=== PATIENT | female | born 1970 | race African-American/Black ===

== ENCOUNTER 2021-09-15 15:30 | Inpatient (IN) | payer OTHER ==
[2021-09-15 17:31] VITALS: BMI 24.5
[2021-09-15] MEDS ORDERED: NICOTINE 10 MG CARTRIDGE (INHALER) IH PRN (22:46)
[2021-09-15] MEDS ORDERED: P-EPHED 60MG/TRIPROLIDI 2.5MG TABLET PO PRN (22:46)
[2021-09-15] MEDS ORDERED: MAGNESIUM HYDROX 2400MG/30ML ORAL SUSPENSION 30 ML CUP PO PRN (22:46)
[2021-09-15] MEDS ORDERED: LOPERAMIDE HCL 2 MG CAPSULE PO PRN (22:46)
[2021-09-15] MEDS ORDERED: ACETAMINOPHEN 325 MG TABLET (FP) PO PRN (22:46)
[2021-09-15] MEDS ORDERED: MAGNESIUM CITRATE 300 ML BOTTLE PO PRN (22:46)
[2021-09-15] MEDS ORDERED: guaiFENesin 200 MG/10 ML 10 ML UNIT-DOSE CUPS PO PRN (22:46)
[2021-09-15] MEDS ORDERED: MAG HYDROX/AL HYDROX/SIMETH 30 ML UNIT-DOSE CUP PO PRN (22:46)
[2021-09-16] MEDS ORDERED: TUBERCULIN PPD 5 TU/0.1ML VIAL ID ONE (00:48)
[2021-09-16] MEDS: MELATONIN 5 MG TABLETS PO SCH ×2 (01:03→21:28)
[2021-09-16] MEDS: hydrOXYzine PAMOATE 25 MG CAPSULE (FP) PO SCH ×5 (07:20→21:29)
[2021-09-16 10:18] LABS: HEMATOCRIT 33.5 % (32.4-45.2); HEMOGLOBIN 10.9 GM/dL (10.7-15.3); MCH 27.7 pg (25.7-33.7); MCHC 32.5 g/dl (32.0-36.0); MEAN CELL VOLUME 85.2 fl (80-96); MEAN PLT VOLUME 8.1 fl (7.5-11.1); PLATELET COUNT 278 10^3/uL (134-434); RBC 3.93 M/mm3 (3.60-5.2); RDW 15.2 % (11.6-15.6); WHITE BLOOD COUNT 4.9 K/mm3 (4.0-10.0)
[2021-09-16] MEDS: PRENATAL VITAMINS W/ FOLIC ACID TABLET (FP) PO SCH (10:18)
[2021-09-16] MEDS: IBUPROFEN 400 MG TABLET (FP) PO PRN (10:20)
[2021-09-16 10:29] LABS: ALBUMIN 2.7 g/dl (3.4-5.0); BLOOD UREA NITROGEN 14.8 mg/dL (7-18)
[2021-09-16 10:32] LABS: CREATININE 0.8 mg/dL (0.55-1.3)
[2021-09-16 10:34] LABS: BILIRUBIN,TOTAL 0.4 mg/dL (0.2-1); TOT PROT 6.3 g/dl (6.4-8.2)
[2021-09-16 11:56] LABS: SYPHILIS W/ RPR CONF NON-REACTIVE (NONREACTIVE)
[2021-09-16 12:52] LABS: HIV INTERPRETATION NEGATIVE (NEGATIVE)
[2021-09-16] MEDS: QUEtiapine FUMARATE 50 MG TABLET PO SCH (21:29)
[2021-09-16] MEDS: THIAMINE HCL 100 MG TABLET (FP) PO SCH (21:29)
[2021-09-17] MEDS: hydrOXYzine PAMOATE 25 MG CAPSULE (FP) PO SCH ×5 (06:30→21:40)
[2021-09-17 07:34] VITALS: BP 125/76; PULSE 50; TEMP 97.5
[2021-09-17] MEDS: PRENATAL VITAMINS W/ FOLIC ACID TABLET (FP) PO SCH (11:05)
[2021-09-17] MEDS: IBUPROFEN 400 MG TABLET (FP) PO PRN (12:34)
[2021-09-17] MEDS: DOCUSATE SODIUM 100 MG CAPSULE (FP) PO SCH ×2 (14:45→21:39)
[2021-09-17 18:01] LABS: EPI CELLS >36 /uL (0-25.1); HYALINE CASTS 1 /uL (0-3.1); URINE APPEARANCE CLEAR; URINE BACTERIA 409 /uL (0-1359); URINE BILIRUBIN NEGATIVE (NEGATIVE); URINE COLOR YELLOW; URINE GLUCOSE (UA) NEGATIVE (NEGATIVE); URINE KETONE TRACE (NEGATIVE); URINE LEUK ESTERASE TRACE (NEGATIVE); URINE NITRITE NEGATIVE (NEGATIVE); URINE PROTEIN NEGATIVE (NEGATIVE); URINE RBC 10 /uL (0-23.9); URINE UROBILINOGEN 0.2 mg/dL (0.2-1.0); URINE WBC 58 /uL (0-25.8)
[2021-09-17] MEDS: QUEtiapine FUMARATE 50 MG TABLET PO SCH (21:39)
[2021-09-17] MEDS: THIAMINE HCL 100 MG TABLET (FP) PO SCH (21:39)
[2021-09-17] MEDS: MELATONIN 5 MG TABLETS PO SCH (21:40)
[2021-09-18] MEDS: hydrOXYzine PAMOATE 25 MG CAPSULE (FP) PO SCH ×5 (06:38→23:56)
[2021-09-18] MEDS: DOCUSATE SODIUM 100 MG CAPSULE (FP) PO SCH ×3 (06:38→21:39)
[2021-09-18] MEDS: PRENATAL VITAMINS W/ FOLIC ACID TABLET (FP) PO SCH (10:59)
[2021-09-18] MEDS: IBUPROFEN 400 MG TABLET (FP) PO PRN ×2 (13:09→21:42)
[2021-09-18] MEDS: MELATONIN 5 MG TABLETS PO SCH (21:39)
[2021-09-18] MEDS: THIAMINE HCL 100 MG TABLET (FP) PO SCH (21:39)
[2021-09-18] MEDS: risperiDONE 1 MG TABLET PO SCH (21:39)
[2021-09-18] MEDS: QUEtiapine FUMARATE 50 MG TABLET PO SCH (21:39)
[2021-09-18] MEDS: BENZTROPINE MESYLATE 1 MG TABLET PO SCH (21:42)
[2021-09-19] MEDS: DOCUSATE SODIUM 100 MG CAPSULE (FP) PO SCH ×3 (07:03→21:26)
[2021-09-19] MEDS: hydrOXYzine PAMOATE 25 MG CAPSULE (FP) PO SCH ×5 (07:03→21:50)
[2021-09-19] MEDS: PRENATAL VITAMINS W/ FOLIC ACID TABLET (FP) PO SCH (10:59)
[2021-09-19] MEDS: BENZTROPINE MESYLATE 1 MG TABLET PO SCH ×2 (10:59→21:26)
[2021-09-19] MEDS: risperiDONE 1 MG TABLET PO SCH ×2 (10:59→21:25)
[2021-09-19] MEDS: IBUPROFEN 400 MG TABLET (FP) PO PRN ×2 (11:00→21:28)
[2021-09-19] MEDS: QUEtiapine FUMARATE 50 MG TABLET PO SCH (21:26)
[2021-09-19] MEDS: MELATONIN 5 MG TABLETS PO SCH (21:27)
[2021-09-19] MEDS: THIAMINE HCL 100 MG TABLET (FP) PO SCH (21:50)
[2021-09-20] MEDS: DOCUSATE SODIUM 100 MG CAPSULE (FP) PO SCH ×3 (06:20→21:28)
[2021-09-20] MEDS: hydrOXYzine PAMOATE 25 MG CAPSULE (FP) PO SCH ×5 (06:20→22:15)
[2021-09-20] MEDS: BENZTROPINE MESYLATE 1 MG TABLET PO SCH ×2 (13:45→21:28)
[2021-09-20] MEDS: IBUPROFEN 400 MG TABLET (FP) PO PRN ×2 (13:45→22:16)
[2021-09-20] MEDS: risperiDONE 1 MG TABLET PO SCH ×2 (13:46→21:28)
[2021-09-20] MEDS: PRENATAL VITAMINS W/ FOLIC ACID TABLET (FP) PO SCH (13:46)
[2021-09-20] MEDS: THIAMINE HCL 100 MG TABLET (FP) PO SCH (21:27)
[2021-09-20] MEDS: QUEtiapine FUMARATE 50 MG TABLET PO SCH (21:28)
[2021-09-20] MEDS: MELATONIN 5 MG TABLETS PO SCH (21:29)
[2021-09-21] MEDS: hydrOXYzine PAMOATE 25 MG CAPSULE (FP) PO SCH ×5 (06:30→22:58)
[2021-09-21] MEDS: DOCUSATE SODIUM 100 MG CAPSULE (FP) PO SCH ×3 (06:30→21:42)
[2021-09-21] MEDS: BENZTROPINE MESYLATE 1 MG TABLET PO SCH ×2 (10:18→21:43)
[2021-09-21] MEDS: risperiDONE 1 MG TABLET PO SCH ×2 (10:18→21:43)
[2021-09-21] MEDS: PRENATAL VITAMINS W/ FOLIC ACID TABLET (FP) PO SCH (10:18)
[2021-09-21] MEDS: IBUPROFEN 400 MG TABLET (FP) PO PRN ×2 (10:31→18:02)
[2021-09-21] MEDS ORDERED: MASKS NR ONE (18:04)
[2021-09-21] MEDS: QUEtiapine FUMARATE 50 MG TABLET PO SCH (21:43)
[2021-09-21] MEDS: THIAMINE HCL 100 MG TABLET (FP) PO SCH (21:43)
[2021-09-21] MEDS: MELATONIN 5 MG TABLETS PO SCH (22:57)
[2021-09-22] MEDS: hydrOXYzine PAMOATE 25 MG CAPSULE (FP) PO SCH ×2 (06:14→10:44)
[2021-09-22] MEDS: DOCUSATE SODIUM 100 MG CAPSULE (FP) PO SCH ×3 (06:14→21:27)
[2021-09-22] MEDS: risperiDONE 1 MG TABLET PO SCH ×2 (10:43→21:27)
[2021-09-22] MEDS: BENZTROPINE MESYLATE 1 MG TABLET PO SCH ×2 (10:43→21:27)
[2021-09-22] MEDS: PRENATAL VITAMINS W/ FOLIC ACID TABLET (FP) PO SCH (10:44)
[2021-09-22] MEDS: IBUPROFEN 400 MG TABLET (FP) PO PRN ×2 (10:45→21:26)
[2021-09-22] MEDS ORDERED: hydrOXYzine PAMOATE 25 MG CAPSULE (FP) PO PRN (11:40)
[2021-09-22] MEDS: MELATONIN 5 MG TABLETS PO SCH (21:26)
[2021-09-22] MEDS: QUEtiapine FUMARATE 50 MG TABLET PO SCH (21:27)
[2021-09-22] MEDS: THIAMINE HCL 100 MG TABLET (FP) PO SCH (21:28)
[2021-09-23] MEDS: DOCUSATE SODIUM 100 MG CAPSULE (FP) PO SCH ×2 (06:28→13:36)
[2021-09-23] MEDS: BENZTROPINE MESYLATE 1 MG TABLET PO SCH (10:06)
[2021-09-23] MEDS: risperiDONE 1 MG TABLET PO SCH (10:06)
[2021-09-23] MEDS: PRENATAL VITAMINS W/ FOLIC ACID TABLET (FP) PO SCH (10:06)
[2021-09-23] MEDS: IBUPROFEN 400 MG TABLET (FP) PO PRN (10:06)
== END 2021-09-23 15:00 | disposition home or self-care (01) | DRG 772 ==
LOC: YASAS 15:30 → Y5N 23:46
PROVIDERS: ADMIT Allergy & Immunology; ATTEND Allergy & Immunology
PROC: HZ42ZZZ Group Counseling for Substance Abuse Treatment, Cognitive-Behavioral (ICD-10-PCS; principal; 2021-09-15)
DX: F10.20 Alcohol dependence, uncomplicated (principal); F14.20 Cocaine dependence, uncomplicated; F17.210 Nicotine dependence, cigarettes, uncomplicated; F25.9 Schizoaffective disorder, unspecified; F19.282 Other psychoactive substance dependence with psychoactive substance-induced sleep disorder; F19.24 Other psychoactive substance dependence with psychoactive substance-induced mood disorder; K21.9 Gastro-esophageal reflux disease without esophagitis; Z86.59 Personal history of other mental and behavioral disorders; Z59.01 Sheltered homelessness; Z56.0 Unemployment, unspecified
CPT/HCPCS: 36415; 80053; 81003; 81025; 85027; 86780; 86803; 87389; 87811; C9803; J2794; U0003; U0005

== ENCOUNTER 2022-09-14 18:04 | Inpatient (IN) | payer OTHER ==
[2022-09-14] MEDS ORDERED: DICYCLOMINE HCL 10 MG CAPSULE PO PRN (19:28)
[2022-09-14] MEDS ORDERED: hydrOXYzine PAMOATE 25 MG CAPSULE (FP) PO PRN (19:28)
[2022-09-14] MEDS ORDERED: MAGNESIUM CITRATE 300 ML BOTTLE PO PRN (19:28)
[2022-09-14] MEDS ORDERED: MAGNESIUM HYDROX 2400MG/30ML ORAL SUSPENSION 30 ML CUP PO PRN (19:28)
[2022-09-14] MEDS ORDERED: BISMUTH SUBSALICYLATE 524 MG/30 ML PO PRN (19:28)
[2022-09-14] MEDS ORDERED: ONDANSETRON *ODT* 4 MG TABLET SL PRN (19:28)
[2022-09-14] MEDS ORDERED: METHOCARBAMOL 500 MG TABLET PO PRN (19:28)
[2022-09-14] MEDS ORDERED: MAG HYDROX/AL HYDROX/SIMETH 30 ML UNIT-DOSE CUP PO PRN (19:28)
[2022-09-14] MEDS ORDERED: NICOTINE 10 MG CARTRIDGE (INHALER) IH PRN (19:28)
[2022-09-14] MEDS ORDERED: LOPERAMIDE HCL 2 MG CAPSULE PO PRN (19:28)
[2022-09-14] MEDS ORDERED: NALOXONE HCL (KLOXXADO) 8 MG SPRAY NS PRN (19:28)
[2022-09-14] MEDS ORDERED: IBUPROFEN 400 MG TABLET (FP) PO PRN (19:28)
[2022-09-14] MEDS ORDERED: ACETAMINOPHEN 325 MG TABLET (FP) PO PRN ×2 (19:28)
[2022-09-14] MEDS ORDERED: BENZOCAINE/MENTHOL (CHLORASEPTIC ) LOZENGE MM PRN (19:28)
[2022-09-14] MEDS ORDERED: IBUPROFEN 600 MG TABLET (FP) PO PRN (19:28)
[2022-09-14 19:42] VITALS: BMI 22.8
[2022-09-14] MEDS: PRENATAL VITAMINS W/ FOLIC ACID TABLET (FP) PO SCH (20:11)
[2022-09-14] MEDS: MELATONIN 5 MG TABLETS PO SCH (22:50)
[2022-09-14] MEDS: THIAMINE HCL 100 MG TABLET (FP) PO SCH (22:51)
[2022-09-15] MEDS: PRENATAL VITAMINS W/ FOLIC ACID TABLET (FP) PO SCH (10:26)
[2022-09-15 12:41] VITALS: RESP 18
[2022-09-15 12:54] LABS: HEMATOCRIT 31.3 % (32.4-45.2); HEMOGLOBIN 10.2 GM/dL (10.7-15.3); MCH 26.7 pg (25.7-33.7); MCHC 32.5 g/dl (32.0-36.0); MEAN CELL VOLUME 82.3 fl (80-96); PLATELET COUNT 282 10^3/uL (134-434); RBC 3.81 M/mm3 (3.60-5.2); RDW 17.6 % (11.6-15.6); WHITE BLOOD COUNT 4.9 K/mm3 (4.0-10.0)
[2022-09-15 13:08] LABS: ALBUMIN 2.8 g/dl (3.4-5.0); BLOOD UREA NITROGEN 12.7 mg/dL (7-18); CALCIUM 9.1 mg/dL (8.5-10.1)
[2022-09-15 13:11] LABS: CREATININE 0.7 mg/dL (0.55-1.3)
[2022-09-15 13:13] LABS: BILIRUBIN,TOTAL 0.2 mg/dL (0.2-1); TOT PROT 6.5 g/dl (6.4-8.2)
[2022-09-15] MEDS: MELATONIN 5 MG TABLETS PO SCH (22:20)
[2022-09-15] MEDS: THIAMINE HCL 100 MG TABLET (FP) PO SCH (22:20)
[2022-09-15] MEDS: BENZTROPINE MESYLATE 1 MG TABLET PO SCH (22:20)
[2022-09-16 05:46] VITALS: TEMP 97.5
[2022-09-16] MEDS: PRENATAL VITAMINS W/ FOLIC ACID TABLET (FP) PO SCH (10:40)
[2022-09-16] MEDS: BENZTROPINE MESYLATE 1 MG TABLET PO SCH (10:40)
[2022-09-16 10:43] VITALS: BP 153/91; PULSE 88
[2022-09-16] MEDS ORDERED: PENICILLIN G BENZATHINE 2,400,000 UNIT/4 ML PFS IM ONE (11:30)
== END 2022-09-16 11:51 | disposition other institution (70) | DRG 773 ==
LOC: YASAS 18:04 → UNDOADMIN 19:11 → Y3N 19:11 → UNDODISIN 09-16 11:51
PROVIDERS: ADMIT Allergy & Immunology; ATTEND Surgery
PROC: HZ2ZZZZ Detoxification Services for Substance Abuse Treatment (ICD-10-PCS; principal; 2022-09-14)
DX: F11.23 Opioid dependence with withdrawal (principal); F10.230 Alcohol dependence with withdrawal, uncomplicated; F14.20 Cocaine dependence, uncomplicated; F17.210 Nicotine dependence, cigarettes, uncomplicated; F25.9 Schizoaffective disorder, unspecified; F31.9 Bipolar disorder, unspecified; F19.24 Other psychoactive substance dependence with psychoactive substance-induced mood disorder; A53.9 Syphilis, unspecified; K21.9 Gastro-esophageal reflux disease without esophagitis; G47.00 Insomnia, unspecified; E11.9 Type 2 diabetes mellitus without complications; M10.9 Gout, unspecified; Z56.0 Unemployment, unspecified; Z59.01 Sheltered homelessness
CPT/HCPCS: 36415; 80053; 85027; 86593; 86780; C9803-CS; U0003; U0005

== ENCOUNTER 2025-03-05 14:08 | Inpatient (IN) | payer OTHER ==
[2025-03-05] MEDS ORDERED: IBUPROFEN 400 MG TABLET (FP) PO PRN (15:01)
[2025-03-05] MEDS ORDERED: MAG HYDROX/AL HYDROX/SIMETH 30 ML UNIT-DOSE CUP PO PRN (15:01)
[2025-03-05] MEDS ORDERED: IBUPROFEN 600 MG TABLET (FP) PO PRN (15:01)
[2025-03-05] MEDS ORDERED: MAGNESIUM HYDROX 2400MG/30ML ORAL SUSPENSION 30 ML CUP PO PRN (15:01)
[2025-03-05] MEDS ORDERED: guaiFENesin 600 MG TABLET.ER (FP) PO PRN (15:01)
[2025-03-05] MEDS ORDERED: METHOCARBAMOL 500 MG TABLET PO PRN (15:01)
[2025-03-05] MEDS ORDERED: POLYETHYLENE GLYCOL (HEALTHYLAX) 3350 17 GM PACKET PO PRN (15:01)
[2025-03-05] MEDS ORDERED: BENZOCAINE/MENTHOL (CHLORASEPTIC ) LOZENGE MM PRN (15:01)
[2025-03-05] MEDS ORDERED: BENZONATATE 200 MG CAPSULE PO PRN (15:01)
[2025-03-05] MEDS ORDERED: LOPERAMIDE HCL 2 MG CAPSULE PO PRN (15:01)
[2025-03-05] MEDS ORDERED: ACETAMINOPHEN 325 MG TABLET (FP) PO PRN (15:01)
[2025-03-05] MEDS: THIAMINE 100 MG TABLET PO SCH (21:18)
[2025-03-05] MEDS: MELATONIN 5 MG TABLETS PO SCH (21:18)
[2025-03-05] MEDS: BENZTROPINE MESYLATE 1 MG TABLET PO SCH (21:18)
[2025-03-05] MEDS: hydrOXYzine PAMOATE 25 MG CAPSULE (FP) PO PRN (21:18)
[2025-03-05] MEDS: risperiDONE 1 MG TABLET PO SCH (21:18)
[2025-03-06] MEDS: PRENATAL VITAMINS W/ FOLIC ACID TABLET (FP) PO SCH (06:16)
[2025-03-06 11:24] VITALS: RESP 16
[2025-03-06] MEDS ORDERED: MECLIZINE HCL 12.5 MG TABLET PO PRN (13:56)
[2025-03-06] MEDS ORDERED: ONDANSETRON *ODT* 4 MG TABLET SL PRN (13:57)
[2025-03-08] MEDS: QUEtiapine FUMARATE 50 MG TABLET PO SCH (21:24)
[2025-03-09] MEDS: PRENATAL VITAMINS W/ FOLIC ACID TABLET (FP) PO SCH (10:19)
[2025-03-10 06:46] VITALS: PULSE 60
[2025-03-11] MEDS ORDERED: QUEtiapine FUMARATE 25 MG TABLET ONE (20:22)
[2025-03-12 07:05] VITALS: BP 126/68; TEMP 97.4
== END 2025-03-12 12:35 | disposition home or self-care (01) | DRG 772 ==
LOC: YASAS 14:08 → Y5N 14:09
PROVIDERS: ADMIT Psychiatry & Neurology Pain Medicine; ATTEND Psychiatry & Neurology Pain Medicine
PROC: HZ42ZZZ Group Counseling for Substance Abuse Treatment, Cognitive-Behavioral (ICD-10-PCS; principal; 2025-03-05)
DX: F10.20 Alcohol dependence, uncomplicated (principal); F14.20 Cocaine dependence, uncomplicated; F20.9 Schizophrenia, unspecified; G24.01 Drug induced subacute dyskinesia; G47.00 Insomnia, unspecified; E11.9 Type 2 diabetes mellitus without complications; Z87.891 Personal history of nicotine dependence
CPT/HCPCS: 36415; 86803

== ENCOUNTER 2025-04-20 11:31 | Inpatient (IN) | payer OTHER ==
[2025-04-20] MEDS ORDERED: LOPERAMIDE HCL 2 MG CAPSULE PO PRN (11:49)
[2025-04-20] MEDS ORDERED: ACETAMINOPHEN 325 MG TABLET (FP) PO PRN (11:49)
[2025-04-20] MEDS ORDERED: guaiFENesin 600 MG TABLET.ER (FP) PO PRN (11:49)
[2025-04-20] MEDS ORDERED: IBUPROFEN 400 MG TABLET (FP) PO PRN (11:49)
[2025-04-20] MEDS ORDERED: MAGNESIUM HYDROX 2400MG/30ML ORAL SUSPENSION 30 ML CUP PO PRN (11:49)
[2025-04-20] MEDS ORDERED: BENZOCAINE/MENTHOL (CHLORASEPTIC ) LOZENGE MM PRN (11:49)
[2025-04-20] MEDS ORDERED: BENZONATATE 200 MG CAPSULE PO PRN (11:49)
[2025-04-20] MEDS ORDERED: MAG HYDROX/AL HYDROX/SIMETH 30 ML UNIT-DOSE CUP PO PRN (11:49)
[2025-04-20] MEDS: BENZTROPINE MESYLATE 1 MG TABLET PO SCH (21:59)
[2025-04-20] MEDS: QUEtiapine FUMARATE 50 MG TABLET PO SCH (21:59)
[2025-04-20] MEDS: MELATONIN 5 MG TABLETS PO SCH (21:59)
[2025-04-20] MEDS: THIAMINE 100 MG TABLET PO SCH (21:59)
[2025-04-20] MEDS ORDERED: risperiDONE 1 MG TABLET PO SCH (22:00)
[2025-04-20] MEDS ORDERED: BENZTROPINE MESYLATE 0.5 MG TABLET (FP) PO SCH (22:00)
[2025-04-20] MEDS: risperiDONE 2 MG TABLET PO SCH (22:28)
[2025-04-21] MEDS: PRENATAL VITAMINS W/ FOLIC ACID TABLET (FP) PO SCH (07:57)
[2025-04-21] MEDS: risperiDONE 1 MG TABLET PO SCH (09:41)
[2025-04-23] MEDS: METHOCARBAMOL 500 MG TABLET PO PRN (18:01)
[2025-04-25] MEDS: risperiDONE 1 MG TABLET PO SCH (21:33)
[2025-04-25] MEDS: QUEtiapine FUMARATE 50 MG TABLET PO SCH (21:54)
[2025-04-26] MEDS: PRENATAL VITAMINS W/ FOLIC ACID TABLET (FP) PO SCH (10:03)
[2025-04-29] MEDS: POLYETHYLENE GLYCOL (HEALTHYLAX) 3350 17 GM PACKET PO PRN (17:21)
[2025-05-01] MEDS: IBUPROFEN 600 MG TABLET (FP) PO PRN (11:15)
[2025-05-01] MEDS: BENZTROPINE MESYLATE 1 MG TABLET PO SCH (22:12)
[2025-05-02] MEDS: hydrOXYzine PAMOATE 25 MG CAPSULE (FP) PO PRN (09:53)
[2025-05-02] MEDS: BENZTROPINE MESYLATE 1 MG TABLET PO SCH (09:53)
[2025-05-03] MEDS: DOCUSATE SODIUM 100 MG CAPSULE (FP) PO PRN (09:54)
[2025-05-06] MEDS ORDERED: QUEtiapine FUMARATE 25 MG TABLET ONE (20:33)
[2025-05-07 06:38] VITALS: RESP 18; TEMP 98.2
[2025-05-07 12:21] VITALS: BP 146/64; PULSE 115
== END 2025-05-07 10:00 | disposition home or self-care (01) | DRG 772 ==
LOC: YASAS 11:31 → Y3NR 11:33 → Y5N 04-25 11:43
PROVIDERS: ADMIT Psychiatry & Neurology Pain Medicine; ATTEND Psychiatry & Neurology Pain Medicine
PROC: HZ42ZZZ Group Counseling for Substance Abuse Treatment, Cognitive-Behavioral (ICD-10-PCS; principal; 2025-04-20)
DX: F10.20 Alcohol dependence, uncomplicated (principal); F14.20 Cocaine dependence, uncomplicated; F31.9 Bipolar disorder, unspecified; F20.9 Schizophrenia, unspecified; K21.9 Gastro-esophageal reflux disease without esophagitis; K59.00 Constipation, unspecified; Z86.19 Personal history of other infectious and parasitic diseases; Z87.891 Personal history of nicotine dependence; Z99.89 Dependence on other enabling machines and devices
CPT/HCPCS: 82962